=== PATIENT | female | born 1940 | race Caucasian/White ===

== ENCOUNTER 2016-10-23 15:48 | Emergency (ER) | payer MEDICARE ==
[~2016-10-23] VITALS: Ht 165.1 cm; Wt 109.0 kg
[~2016-10-23 15:48] MED LIST: ACDPT PO; BISO5TAB PO; LEVO150T PO; LEVO500T16 PO; LORA10CA PO; PRAV40TA2 PO; VERA240C2 PO; VIT1CAPS16 PO
--- OUTSIDE RECORDS SUMMARY | 2016-10-23 15:53 | XMS REPORT | Summary of Care ---
Author Author Sukumar Fay M.D. Organization Unknown Address [address] [place], [place] [id number] Phone Unavailable Care Team Providers Care Food Storeroom Clerk Name Role Phone Sukumar Fay M.D. 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 Quantity: 30 Refills: 0 Sukumar Fay M.D. Started 01-Mar-2009 ActiveLevothyroxine Sodium 200 MCG Oral Tablet TAKE 1 TABLET DAILY. Quantity: 30 Refills: 0 Sukumar Fay M.D. Started 01-Mar-2009 ActiveVitamin B-12 SOLN Refills: 0 ActiveCalcium + D 600-200 MG-UNIT TABS Take 1 tablet daily Quantity: 30 Refills: 0 Sukumar Fay M.D. Started 03-Oct-2010 Active Allergies and Adverse Reactions Name Dates Details Enalapril Maleate TABS Status: Active Procedures Procedure Dates Details Procedures not documented Immunization Name Dates Details Immunizations not documented Social History Smoking StatusUnknown if ever smoked Vital Signs Date Test Result Details 07-Feb-2015 12:57 BP Systolic 140 mm[Hg] Status: BP Diastolic 78 mm[Hg] Status: Heart Rate 90 /min Status: Weight 247 lb Status: Body Mass Index Calculated 41.1 kg/m2 Status: Body Surface Area Calculated 2.16 m2 Status: Results Date Description Value Details 07-Feb-2015 10:37 CBC w/ Auto Diff 7150 WBC 3.7 K/uL (Below low threshold) Range: 4.5-11.0 RBC 4.11 mil/uL (Better) Range: 3.60-5.00 HGB 12.2 g/dL (Better) Range: 12.0-16.0 HCT 33.6 % (Below low threshold) Range: 36.0-48.0 MCV 81.7 fL (Better) Range: 80.0-99.0 MCH 29.7 pg (Better) Range: 27.3-32.5 MCHC 36.3 % (Above high threshold) Range: 32.0-36.0 RDW 17.7 % (Above high threshold) Range: 11.6-14.8 PLATELETS 254 K/uL (Better) Range: 150-400 MPV 8.6 fL (Better) Range: 6.0-11.0 %NEUTRO 53.4 % (Better) Range: 37.0-80.0 %LYMPHS 29.5 % (Better) Range: 13.0-50.0 %MONO 8.3 % (Better) Range: 0.0-12.0 %EOS 4.8 % (Better) Range: 0.0-7.0 %BASO 1.2 % (Better) Range: 0.0-2.5 %FELICITA 2.8 % (Better) Range: 0.0-5.0 NEUTRO 2.0 K/uL (Better) Range: 2.0-6.9 LYMPHS 1.1 K/uL (Better) Range: 0.6-3.4 MONOS 0.3 K/uL (Better) Range: 0.0-0.9 EOS 0.2 K/uL (Better) Range: 0.0-0.7 BASO 0.0 K/uL (Better) Range: 0.0-0.2 11:21 RENAL PROFILE 1240 SODIUM 136 mmol/L (Better) Range: 133-144 POTASSIUM 4.3 mmol/L (Better) Range: 3.5-5.1 CHLORIDE 100 mmol/L (Better) Range: 98-110 CARBON DIOXIDE 27.7 mmol/L (Better) Range: 23.0-33.0 ANION GAP 8 mmol/L (Better) Range: 6-16 BUN 28 mg/dL (Above high threshold) Range: 7-18 CREATININE, SERUM 1.01 mg/dL (Better) Range: 0.43-1.13 EST GFR, >60 ml/min (Better) Range: >60 EST GFR, NON-AFR ARMENIAN 54 ml/min (Below low threshold) Range: >60 Comments: EST GFR is reported in ml/min per 1.73 m2 of body surface area. For -[place], please multiple result by 1.2.----- BUN:CREATININE RATIO 28 (Better) GLUCOSE 84 mg/dL (Better) Range: 70-100 ALBUMIN 3.9 g/dL (Better) Range: 3.4-5.0 PHOSPHORUS 3.4 mg/dL (Better) Range: 2.5-4.9 CALCIUM 9.3 mg/dL (Better) Range: 8.5-10.1 Plan of Care Planned Observations Name Dates Details Planned Goals not documented Goal Planned Encounters Appointment; Provider: Sukumar Fay On 06-Feb-2016 11:15 Appointment; Provider: Jose Sharma On 13:30 Instructions Instructions not documented Encounters Appointment; Sukumar Fay Encounter Diagnosis: Problem not documented On 07-Feb-2015 13:00 Appointment; Sukumar Fay Encounter Diagnosis: Problem not documented On 08-Feb-2014 13:30 Appointment; Sukumar Fay Encounter Diagnosis: Problem not documented On 28-Jul-2013 13:30
[2016-10-23] MEDS ORDERED: HYDROcodone/APAP 7.5 MG/325 MG (NORCO) TABLET PO ONE (18:05)
--- NOTE | 2016-10-23 18:50 | NUR ---
called ultrasound at 1814
--- NOTE | 2016-10-23 18:50 | NUR ---
Report given to Soraya CAMERON
[2016-10-23] MEDS ORDERED: HYDR-3702 PO (20:39)
[2016-10-23] MEDS ORDERED: ED- HYDROcodone/ACETAMINOPHEN 5MG/325MG (NORCO) 6 TABLETS/BTL PO ONE (20:40)
[2016-10-23 20:57] VITALS: BP 187/96
--- NOTE | 2016-10-24 08:24 | Diagnostic Imaging Report ---
Technique: Grayscale, pulsed and color Doppler imaging of the left lower extremity. Indication: 75-year-old female with left leg pain. Findings: The left common femoral, femoral and popliteal veins are patent without evidence of DVT. The visualized portions of the proximal deep femoral, greater saphenous, posterior tibial and peroneal veins are also patent. All of the evaluated deep venous structures demonstrate normal compressibility and augmentation where applicable. Impression: No left lower extremity deep venous thrombosis (DVT). Dictated by: Dictated on workstation # [id number]
== END 2016-10-23 20:57 | disposition home or self-care (01) ==
LOC: ED 15:52
DX: M79.651 Pain in right thigh (principal)
CPT/HCPCS: 93971; 99282; A9270; 99283

== ENCOUNTER → 2017-02-18 | Outpatient (REF) | payer MEDICARE ==
[~2017-02-18] MED LIST changes: +HYDR-3702 PO
== END ==
LOC: LAB 13:09
PROVIDERS: ATTEND Family Medicine
DX: Z01.812 Encounter for preprocedural laboratory examination (principal); M48.06 Spinal stenosis, lumbar region
CPT/HCPCS: 85610; 85730